=== PATIENT | female | born 1955 | race Caucasian/White ===

== ENCOUNTER 2017-05-30 05:24 | Emergency (ER) | payer OTHER, MEDICAID ==
[~2017-05-30] VITALS: Ht 160 cm; Wt 79.8 kg
[~2017-05-30 05:24] MED LIST: ABILIFY 5 MG TAB5 MG PO; ALBUTEROL2.5 MG/31 INH; ASPIRIN325 PO; CEFUROXIME250 MG PO; CELEXA 20 MG TA20 MG PO; CLARITIN10 M2 PO; GEODON20 MG PO; HYDROCODON-ACE1 EAC5 PO; JANUMET 50-5001 EACH PO; KLOR-CON 1010 MEQ PO; LASIX 20 MG TAB20 MG PO; MELOXICAM7.5 MG PO; NEXIUM40 MG PO; PREDNISONE 20 M20 M1 PO; PROTONIX40 M1 PO; SYMBICORT160 MCG/4. INH; TRAZODONE 150150 M1 PO; TRILEPTAL150 MG PO; TUSSIONEX PENN473 ML PO; VENTOLIN HFA 1818 GM INH; WELLBUTRIN SR150 MG PO
[2017-05-30] MEDS ORDERED: DUONEB 2.5-0.5 M3 ML INH (05:45)
[2017-05-30] MEDS ORDERED: CEFUROXIME250 MG PO (05:45)
[2017-05-30 06:13] VITALS: BP 149/70
== END 2017-05-30 06:24 | disposition home or self-care (01) ==
LOC: M.ERS 05:24
DX: J44.1 Chronic obstructive pulmonary disease with (acute) exacerbation (principal); J40 Bronchitis, not specified as acute or chronic; K21.9 Gastro-esophageal reflux disease without esophagitis; E11.9 Type 2 diabetes mellitus without complications; G89.29 Other chronic pain; F17.210 Nicotine dependence, cigarettes, uncomplicated; Z98.890 Other specified postprocedural states

== ENCOUNTER 2017-06-11 17:57 | Emergency (ER) | payer OTHER, MEDICAID ==
[~2017-06-11] VITALS: Ht 157.5 cm; Wt 79.8 kg
[~2017-06-11 17:57] MED LIST changes: +DUONEB 2.5-0.5 M3 ML INH
[2017-06-11] MEDS ORDERED: CENTRAVITES1 EAC1 PO (18:36)
[2017-06-11] MEDS ORDERED: DOXYCYCLINE 10100 MG PO (18:37)
[2017-06-11] MEDS ORDERED: OMEGA-31000 M1 PO (18:38)
[2017-06-11] MEDS ORDERED: JANUVIA25 MG PO (18:40)
[2017-06-11 18:42] LABS: HEMATOCRIT 39.6 % (37.0-47.0); HEMOGLOBIN 13.3 gm/dL (12.0-15.0); MCH 29.8 pg (26.0-34.0); MCHC 33.6 g/dL (28.0-37.0); MCV 88.7 fL (80.0-100.0); MPV 7.3 fl. (7.2-11.1); NUCLEATED RBCS 0 /100WBC; PLATELET COUNT* 308 thou/uL (150-400); RBC 4.46 mil/uL (4.20-5.00); RDW-CV 13.9 % (10.5-14.5); WBC 9.1 thou/uL (4.0-11.0)
[2017-06-11 19:03] LABS: ALBUMIN 2.6 g/dL (3.4-5.0); ALKALINE PHOSPHATASE 84 U/L (46-116); ANION GAP 2 mmol/L (7-16); BUN 13 mg/dL (7-18); CALCIUM 8.4 mg/dL (8.5-10.1); CHLORIDE 95 mmol/L (98-107); CO2 32 mmol/L (21-32); CREATININE 0.8 mg/dL (0.6-1.3); GLUCOSE 143 mg/dL (70-99); LIPASE 136 U/L (73-393); NT-PRO BRAIN NAT PEPTIDE 229 pg/mL (<300); POTASSIUM 4.4 mmol/L (3.5-5.1); SGOT 23 U/L (15-37); SGPT 30 U/L (30-65); SODIUM 129 mmol/L (136-145); TOTAL BILIRUBIN 0.3 mg/dL (<0.1-1.0); TOTAL PROTEIN 7.4 g/dL (6.4-8.2); TROPONIN-I LEVEL <0.06 ng/mL (<0.06)
[2017-06-11 19:11] LABS: ABSOLUTE LYMPHOCYTES 0.9 thou/uL (0.8-5.3); ABSOLUTE MONOCYTES 0.3 thou/uL (0.0-1.2); ABSOLUTE NEUTROPHILS 7.9 thou/uL (1.6-8.1)
[2017-06-11 19:12] LABS: PLATELET ESTIMATE ADEQUATE
[2017-06-11 19:19] LABS: URINE BILIRUBIN NEGATIVE (Negative); URINE BLOOD TRACE (Negative); URINE CLARITY CLEAR; URINE COLOR YELLOW; URINE GLUCOSE-RANDOM NEGATIVE (Negative); URINE KETONES NEGATIVE (Negative); URINE LEUKOCYTES-REFLEX NEGATIVE (Negative); URINE NITRITE-REFLEX NEGATIVE (Negative); URINE PROTEIN TRACE (Negative); URINE SPECIFIC GRAVITY 1.015 (1.005-1.030); URINE UROBILINOGEN 0.2 E.U./dl (0.2-1.0)
[2017-06-11 20:34] LABS: INFLUENZA A ANTIGEN None Detected (None Detect); INFLUENZA B ANTIGEN None Detected (None Detect)
[2017-06-11] MEDS ORDERED: PHENERGAN 25 MG25 M1 PO (21:12)
[2017-06-11 21:20] VITALS: BP 148/78
--- NOTE | 2017-06-12 14:41 | EKG ---
[place] [address] ELECTROCARDIOGRAM REPORT Name: ELIUD INGRAM Room: [facility]#: [id number] Admission: 06/11/17 Attend Phys: Discharge: 06/11/17 Date of : 51 Report #: [id number] THIS REPORT FOR: //name// [facility] ED Test Date: 2017-06-11 Test Time: 18:34:09 Pat Name: ELIDU INGRAM Department: Room: Gender: F [employer]: : 1955 Requested By: Kathrine Jackson Order Number: [id number] MD: Matty Madrid Measurements Intervals [place] Rate: 72 P: 57 MA: 135 QRS: 73 QRSD: 92 T: 33 QT: 375 QTc: 411 Interpretive Statements Sinus rhythm Low voltage, precordial leads Baseline wander in lead(s) I,III,aVL Compared to ECG 01/03/2017 17:42:48 Low QRS voltage now present Electronically Signed On 06-12-2017 14:41:42 [employer] by Matty Madrid [email or web address] <ELECTRONICALLY SIGNED> By: Matty Madrid MD, FACC 06/12/17 [facility]1 1834 1834 Matty Madrid MD, [facility] /EPI
== END 2017-06-11 21:23 | disposition home or self-care (01) ==
LOC: M.ERS 17:57
PROVIDERS: Nurse Practitioner Family
DX: R11.2 Nausea with vomiting, unspecified (principal); J44.9 Chronic obstructive pulmonary disease, unspecified; R10.9 Unspecified abdominal pain; K21.9 Gastro-esophageal reflux disease without esophagitis; E11.9 Type 2 diabetes mellitus without complications; G89.29 Other chronic pain; F17.210 Nicotine dependence, cigarettes, uncomplicated; Z86.79 Personal history of other diseases of the circulatory system; Z98.890 Other specified postprocedural states; Z88.8 Allergy status to other drugs, medicaments and biological substances

== ENCOUNTER 2017-07-13 05:45 | Emergency (ER) | payer OTHER, MEDICAID ==
[~2017-07-13] VITALS: Ht 157.5 cm; Wt 136.1 kg
[~2017-07-13 05:45] MED LIST changes: +CENTRAVITES1 EAC1 PO; +DOXYCYCLINE 10100 MG PO; +JANUVIA25 MG PO; +OMEGA-31000 M1 PO; +PHENERGAN 25 MG25 M1 PO
[2017-07-13 06:24] LABS: ABSOLUTE BASOPHILS 0.1 thou/uL (0.0-0.2); ABSOLUTE EOSINOPHILS 0.1 thou/uL (0.0-0.7); ABSOLUTE LYMPHOCYTES 1.8 thou/uL (0.8-5.3); ABSOLUTE NEUTROPHILS 10.4 thou/uL (1.6-8.1); BASOPHILS 0.7 %; EOSINOPHILS 0.4 %; HEMATOCRIT 40.4 % (37.0-47.0); HEMOGLOBIN 13.5 gm/dL (12.0-15.0); LYMPHOCYTES 13.6 %; MCH 29.8 pg (26.0-34.0); MCHC 33.4 g/dL (28.0-37.0); MCV 89.3 fL (80.0-100.0); MONOCYTES 7.7 %; MPV 7.6 fl. (7.2-11.1); NUCLEATED RBCS 0 /100WBC; PLATELET COUNT* 281 thou/uL (150-400); POLYS 77.6 %; RBC 4.52 mil/uL (4.20-5.00); RDW-CV 14.6 % (10.5-14.5); WBC 13.4 thou/uL (4.0-11.0)
[2017-07-13 06:31] LABS: CALCIUM 9.2 mg/dL (8.5-10.1); CREATININE 0.9 mg/dL (0.6-1.3); POTASSIUM 3.7 mmol/L (3.5-5.1)
[2017-07-13 06:35] LABS: ALBUMIN 3.4 g/dL (3.4-5.0); TOTAL BILIRUBIN 0.4 mg/dL (<0.1-1.0); TOTAL PROTEIN 8.1 g/dL (6.4-8.2)
[2017-07-13 06:39] LABS: ALCOHOL < 10 mg/dL (<10); SALICYLATE < 2.8 mg/dL (2.8-20.0)
[2017-07-13 06:40] LABS: ACETAMINOPHEN < 2 ug/mL (10-30)
[2017-07-13 07:25] LABS: URINE BILIRUBIN NEGATIVE (Negative); URINE BLOOD 2+ (Negative); URINE CLARITY CLEAR; URINE COLOR YELLOW; URINE GLUCOSE-RANDOM NEGATIVE (Negative); URINE KETONES NEGATIVE (Negative); URINE LEUKOCYTES-REFLEX NEGATIVE (Negative); URINE NITRITE-REFLEX NEGATIVE (Negative); URINE PROTEIN NEGATIVE (Negative); URINE UROBILINOGEN 0.2 E.U./dl (0.2-1.0)
[2017-07-13 07:33] LABS: AMP/METHAMP Negative (Negative); BARBITURATES Negative (Negative); BENZODIAZEPINES Negative (Negative); COCAINE Negative (Negative); METHADONE Negative (Negative); OPIATES Negative (Negative); PCP Negative (Negative); THC Negative (Negative)
[2017-07-13 07:42] LABS: BACTERIA-REFLEX 1-9 Few /HPF (None Seen); CRYSTALS None Seen /LPF (None Seen); HYALINE CASTS 4-10 Moderate /LPF (None Seen); MUCUS 0-3 Light strn/LPF (None Seen); SQUAMOUS 0-3 Few /LPF (0-3); URINE RBC 3-10 Few /HPF (0-2); URINE WBC-REFLEX None Seen /HPF (0-5)
[2017-07-13 10:29] VITALS: BP 142/97
== END 2017-07-13 11:00 | disposition home or self-care (01) ==
LOC: M.ERS 05:45
PROVIDERS: Emergency Medicine Emergency Medical Services
DX: F23 Brief psychotic disorder (principal); R41.82 Altered mental status, unspecified

== ENCOUNTER 2019-09-03 22:30 | Inpatient (IN) | payer OTHER, MEDICAID ==
[~2019-09-03] VITALS: Ht 162.6 cm; Wt 137.9 kg
[2019-09-03 22:46] VITALS: BP 134/94
[2019-09-03 23:18] LABS: ABSOLUTE BASOPHILS 0.1 thou/uL (0.0-0.2); ABSOLUTE EOSINOPHILS 0.1 thou/uL (0.0-0.7); ABSOLUTE LYMPHOCYTES 1.6 thou/uL (0.8-5.3); ABSOLUTE MONOCYTES 0.6 thou/uL (0.0-1.2); ABSOLUTE NEUTROPHILS 6.9 thou/uL (1.6-8.1); BASOPHILS 0.7 %; EOSINOPHILS 1.5 %; HEMOGLOBIN 10.8 gm/dL (12.0-15.0); MCH 25.9 pg (26.0-34.0); MCHC 31.9 g/dL (28.0-37.0); MCV 81.1 fL (80.0-100.0); MONOCYTES 6.8 %; MPV 7.8 fl. (7.2-11.1); NUCLEATED RBCS 0 /100WBC; PLATELET COUNT* 285 thou/uL (150-400); RBC 4.19 mil/uL (4.20-5.00); WBC 9.3 thou/uL (4.0-11.0)
[2019-09-03 23:38] LABS: CALCIUM 7.9 mg/dL (8.5-10.1); CREATININE 0.9 mg/dL (0.6-1.3); POTASSIUM 3.5 mmol/L (3.5-5.1)
[2019-09-03 23:49] LABS: ALBUMIN 2.9 g/dL (3.4-5.0); TOTAL BILIRUBIN 0.3 mg/dL (<0.1-1.0); TOTAL PROTEIN 7.3 g/dL (6.4-8.2)
[2019-09-04 02:40] VITALS: BP 123/60
[2019-09-04 02:55] VITALS: BP 116/50
[2019-09-04] MEDS ORDERED: NEURONTIN 300M300 M2 PO (03:23)
[2019-09-04] MEDS ORDERED: [UNRECOGNIZED DRUG - OTHER] (03:23)
[2019-09-04] MEDS ORDERED: VITAMIN D310 MC2 (03:24)
[2019-09-04 08:00] VITALS: BP 117/42
--- NOTE | 2019-09-04 10:40 | EKG ---
[place] [address] ELECTROCARDIOGRAM REPORT Name: NATALYELIUD Room: [address] ADM IN M.R.#: [id number] Admission: 09/04/19 Attend Phys: Merlyn De La Garza, Discharge: Date of : 51 Date of Service: 09/03/19 2254 Report #: [id number] THIS REPORT FOR: //name// [facility] ED Test Date: 2019-09-03 Test Time: 22:54:22 Pat Name: ELIUD INGRAM Department: Room: [facility] Gender: F Text Transcriber: MARLIN : 1955 Requested By: Jasson Ch Order Number: [id number] MD: John Martinez Measurements Intervals [place] Rate: 71 P: 56 AL: 148 QRS: 85 QRSD: 107 T: 14 QT: 429 QTc: 467 Interpretive Statements Sinus rhythm Borderline right axis deviation Low voltage, precordial leads Compared to ECG 06/11/2017 18:34:09 No significant changes Electronically Signed On 09-04-2019 10:38:29 CDT by John Martinez [email or web address] <ELECTRONICALLY SIGNED> By: John Martinez MD, FACC 09/04/19 1038 2254 2254 John Martinez MD, [facility] /EPI
[2019-09-04 12:00] VITALS: BP 98/58
[2019-09-04 20:39] VITALS: BP 121/35
[2019-09-04 23:55] VITALS: BP 116/62
[2019-09-05 04:00] VITALS: BP 136/77
[2019-09-05 06:00] LABS: HEMATOCRIT 34.7 % (37.0-47.0); HEMOGLOBIN 10.9 gm/dL (12.0-15.0); MCH 25.6 pg (26.0-34.0); MCHC 31.4 g/dL (28.0-37.0); MCV 81.6 fL (80.0-100.0); MPV 7.9 fl. (7.2-11.1); RBC 4.25 mil/uL (4.20-5.00); RDW-CV 16.4 % (10.5-14.5); WBC 8.1 thou/uL (4.0-11.0)
[2019-09-05 06:26] LABS: ALBUMIN 2.9 g/dL (3.4-5.0); ALKALINE PHOSPHATASE 69 U/L (46-116); ANION GAP < 0 mmol/L (7-16); BUN 7 mg/dL (7-18); CALCIUM 8.1 mg/dL (8.5-10.1); CHLORIDE 99 mmol/L (98-107); CO2 41 mmol/L (21-32); CREATININE 0.8 mg/dL (0.6-1.3); GLUCOSE 148 mg/dL (70-99); POTASSIUM 3.8 mmol/L (3.5-5.1); SGOT 13 U/L (15-37); SGPT 15 U/L (30-65); SODIUM 139 mmol/L (136-145); TOTAL BILIRUBIN 0.4 mg/dL (<0.1-1.0); TOTAL PROTEIN 7.1 g/dL (6.4-8.2)
[2019-09-05 08:30] VITALS: BP 139/97
[2019-09-05 12:00] VITALS: BP 130/67
[2019-09-05 16:00] VITALS: BP 104/48
--- NOTE | 2019-09-05 16:07 | 2DMMODE ---
[place] [address] 2 D/M-MODE ECHOCARDIOGRAM Name: NATALYELIUD Room: [address] IN [facility]#: [id number] Admission: 09/04/19 Attend Phys: Merlyn De La Garza, Discharge: Date of : 51 Date of Service: 09/05/19 1605 Report #: [id number] THIS REPORT FOR: cc: Pamella Moss MD, Linda MD Holkins,Ari Gaffney MD [facility] ~ APPROVED REPORT Study performed: 09/05/2019 14:23:41 EXAM: Comprehensive 2D, Doppler, and color-flow Echocardiogram Patient Location: In-Patient Room #: [facility] Status: routine BSA: 2.35 HR: 57 bpm BP: 136/77 mmHg Rhythm: NSR Other Information Study Quality: Good Indications Congestive Heart Failure ELEVATED BNP 2D Dimensions IVSd: 11.20 (7-11mm) LVOT Diam: 19.06 (18-24mm) LVDd: 42.80 mm PWd: 11.50 (7-11mm) Ascending Ao: 31.44 (22-36mm) LVDs: 28.65 (25-40mm) Aortic Root: 32.00 mm Volumes Left Atrial Volume (Systole) LA ESV Index: 34.70 mL/m2 Aortic Valve AoV Peak Marin.: 1.93 m/s AO Peak Gr.: 14.92 mmHg LVOT Max P.45 mmHg AO Mean Gr.: 8.82 mmHg LVOT Mean P.98 mmHg LVOT Max V: 1.62 m/s AO V2 VTI: 39.52 cm LVOT Mean V: 1.01 m/s WILLIAM (VTI): 2.22 cm2 LVOT V1 VTI: 30.76 [place] [address] 2 D/M-MODE ECHOCARDIOGRAM Name: ELIUD INGRAM Room: [address]#: [id number] Admission: 09/04/19 Attend Phys: Merlyn De La Garza, Discharge: Date of : 51 Date of Service: 09/05/19 1605 Report #: [id number] Mitral Valve E/A Ratio: 2.03 MV Decel. Time: 182.33 ms MV E Max Marin.: 1.27 m/s MV PHT: 52.88 ms MVA (PHT): 4.16 cm2 TDI E/Lateral E': 9.07 E/Medial E': 15.88 Medial E' Marin.: 0.08 m/s Lateral E' Marin.: 0.14 m/s Pulmonary Valve PV Peak Marin.: 1.33 m/s PV Peak Gr.: 7.10 mmHg Tricuspid Valve RAP Estimate: 15.00 mmHg TR Peak Gr.: 24.26 mmHg RVSP: 39.00 mmHg PA Pressure: 39.00 mmHg Left Ventricle The left ventricle is normal size. There is normal LV segmental wall motion. There is normal left ventricular wall thickness. Left ventricular systolic function is normal. The left ventricular ejection fraction is within the normal range. LVEF is 60%. The left ventricular diastolic function is normal. Right Ventricle Right ventricle is mild to moderately dilated. The right ventricular systolic function is normal. Atria The left atrium size is normal. Right atrium is mildly dilated. Aortic Valve The aortic valve is normal in structure. No aortic regurgitation is present. There is no aortic valvular stenosis. Mitral Valve The mitral valve is normal in structure. Trace mitral regurgitation. No evidence of mitral valve stenosis. Tricuspid Valve The tricuspid valve is normal in structure[place] [address] 2 D/M-MODE ECHOCARDIOGRAM Name: ELIUD INGRAM Room: [address]#: [id number] Admission: 09/04/19 Attend Phys: Merlyn De La Garza, Discharge: Date of : 51 Date of Service: 09/05/19 1605 Report #: [id number] regurgitation. Mild pulmonary hypertension. Pulmonic Valve The pulmonary valve is normal in structure. There is no pulmonic valvular regurgitation. Great Vessels The aortic root is normal in size. IVC is dilated and collapses <50% with inspiration. Pericardium There is no pericardial effusion. <Conclusion> The left ventricle is normal size. There is normal left ventricular wall thickness. Left ventricular systolic function is normal. The left ventricular ejection fraction is within the normal range. LVEF is 60%. The left ventricular diastolic function is normal. Right ventricle is mild to moderately dilated. The right ventricular systolic function is normal. The left atrium size is normal. Right atrium is mildly dilated. The aortic valve is normal in structure. The mitral valve is normal in structure. Trace mitral regurgitation. The tricuspid valve is normal in structure. Trace tricuspid regurgitation. Mild pulmonary hypertension. IVC is dilated and collapses <50% with inspiration. There is no pericardial effusion. There is normal LV segmental wall motion. <ELECTRONICALLY SIGNED> By: Ari Guzman MD, FACC 09/05/19 1605 1605 1605 Ari Guzman MD, FACC /INF
[2019-09-05 20:00] VITALS: BP 107/43
[2019-09-06] VITALS: BP 143/57
[2019-09-06 04:00] VITALS: BP 105/49
[2019-09-06 04:05] LABS: HEMATOCRIT 33.2 % (37.0-47.0); HEMOGLOBIN 10.4 gm/dL (12.0-15.0); MCH 25.6 pg (26.0-34.0); MCHC 31.4 g/dL (28.0-37.0); MCV 81.6 fL (80.0-100.0); MPV 7.1 fl. (7.2-11.1); RBC 4.07 mil/uL (4.20-5.00); RDW-CV 16.9 % (10.5-14.5); WBC 7.4 thou/uL (4.0-11.0)
[2019-09-06 04:48] LABS: ALBUMIN 2.7 g/dL (3.4-5.0); ALKALINE PHOSPHATASE 61 U/L (46-116); ANION GAP < 0 mmol/L (7-16); BUN 8 mg/dL (7-18); CALCIUM 8.3 mg/dL (8.5-10.1); CHLORIDE 103 mmol/L (98-107); CO2 41 mmol/L (21-32); CREATININE 0.8 mg/dL (0.6-1.3); GLUCOSE 138 mg/dL (70-99); MAGNESIUM 2.2 mg/dL (1.8-2.4); POTASSIUM 3.9 mmol/L (3.5-5.1); SGOT 9 U/L (15-37); SGPT 12 U/L (30-65); SODIUM 142 mmol/L (136-145); TOTAL BILIRUBIN 0.4 mg/dL (<0.1-1.0); TOTAL PROTEIN 6.9 g/dL (6.4-8.2)
[2019-09-06 08:00] VITALS: BP 108/74
[2019-09-06 12:11] VITALS: BP 94/53
[2019-09-06 16:00] VITALS: BP 107/63
[2019-09-06 20:00] VITALS: BP 107/57
[2019-09-07] VITALS: BP 120/67
[2019-09-07 04:00] VITALS: BP 108/58
[2019-09-07 08:15] VITALS: BP 105/55
[2019-09-07 12:10] VITALS: BP 103/61
[2019-09-07 15:55] VITALS: BP 113/58
[2019-09-07 19:40] VITALS: BP 101/68
[2019-09-08] VITALS: BP 113/60
[2019-09-08 04:00] VITALS: BP 102/55
[2019-09-08 05:38] LABS: HEMATOCRIT 35.1 % (37.0-47.0); HEMOGLOBIN 10.9 gm/dL (12.0-15.0); MCH 25.4 pg (26.0-34.0); RBC 4.28 mil/uL (4.20-5.00); RDW-CV 16.8 % (10.5-14.5); WBC 8.1 thou/uL (4.0-11.0)
[2019-09-08 05:46] LABS: ALBUMIN 2.8 g/dL (3.4-5.0); CALCIUM 8.8 mg/dL (8.5-10.1); CREATININE 0.7 mg/dL (0.6-1.3); MAGNESIUM 2.1 mg/dL (1.8-2.4); TOTAL BILIRUBIN 0.2 mg/dL (<0.1-1.0)
[2019-09-08 08:00] VITALS: BP 168/87
[2019-09-08 12:09] VITALS: BP 115/49
[2019-09-08 16:52] VITALS: BP 104/51
[2019-09-08 19:50] VITALS: BP 95/55
[2019-09-09 00:35] VITALS: BP 97/48
[2019-09-09 04:24] VITALS: BP 124/47
[2019-09-09 08:00] VITALS: BP 108/44
[2019-09-09] MEDS ORDERED: GLUCOPHAGE500 MG PO (11:10)
[2019-09-09] MEDS ORDERED: DOXYCYCLINE 10100 MG PO (11:10)
[2019-09-09] MEDS ORDERED: LASIX 40 MG TAB40 M1 PO (11:10)
[2019-09-09] MEDS ORDERED: PREDNISONE 10 M10 MG PO (11:10)
== END 2019-09-09 14:10 | disposition home or self-care (01) | DRG 177 ==
LOC: M.ERS 22:30 → M.ORTHSURG 09-04 00:50 → M.TBA-ER 09-04 00:50 → M.ORTHSURG 09-04 02:31 → M.2W 09-05 20:16
PROVIDERS: Emergency Medicine Emergency Medical Services; ADMIT Internal Medicine
DX: J15.6 Pneumonia due to other Gram-negative bacteria (principal); J96.01 Acute respiratory failure with hypoxia; I50.33 Acute on chronic diastolic (congestive) heart failure; L03.116 Cellulitis of left lower limb; L03.115 Cellulitis of right lower limb; J44.0 Chronic obstructive pulmonary disease with (acute) lower respiratory infection; J44.1 Chronic obstructive pulmonary disease with (acute) exacerbation; E11.9 Type 2 diabetes mellitus without complications; F17.210 Nicotine dependence, cigarettes, uncomplicated; I87.8 Other specified disorders of veins; F31.9 Bipolar disorder, unspecified; E78.41 Elevated Lipoprotein(a); Z20.828 Contact with and (suspected) exposure to other viral communicable diseases; Z88.8 Allergy status to other drugs, medicaments and biological substances; Z79.891 Long term (current) use of opiate analgesic; Z90.2 Acquired absence of lung [part of]; Z79.899 Other long term (current) drug therapy; Z85.118 Personal history of other malignant neoplasm of bronchus and lung

== ENCOUNTER 2020-05-06 11:42 | Emergency (ER) | payer OTHER, MEDICAID ==
[~2020-05-06] VITALS: Ht 162.6 cm; Wt 136.1 kg
[~2020-05-06 11:42] MED LIST changes: +GLUCOPHAGE500 MG PO; +LASIX 40 MG TAB40 M1 PO; +NEURONTIN 300M300 M2 PO; +PREDNISONE 10 M10 MG PO; +VITAMIN D310 MC2; +[UNRECOGNIZED DRUG - OTHER]
[2020-05-06] MEDS ORDERED: JANTOVEN7.5 MG PO (11:51)
[2020-05-06] MEDS ORDERED: DEPAKOTE250 MG PO (11:52)
[2020-05-06 12:02] LABS: URINE BILIRUBIN NEGATIVE (Negative); URINE BLOOD 1+ (Negative); URINE CLARITY CLEAR; URINE COLOR YELLOW; URINE GLUCOSE-RANDOM NEGATIVE (Negative); URINE KETONES NEGATIVE (Negative); URINE LEUKOCYTES-REFLEX NEGATIVE (Negative); URINE NITRITE-REFLEX NEGATIVE (Negative); URINE PROTEIN NEGATIVE (Negative); URINE UROBILINOGEN 0.2 E.U./dl (0.2-1.0)
[2020-05-06 12:06] LABS: SQUAMOUS 4-10 Moderate /LPF (0-3); URINE RBC 3-10 Few /HPF (0-2); URINE WBC-REFLEX 0-5 Rare /HPF (0-5)
[2020-05-06 12:07] LABS: CASTS None Seen /LPF (None Seen); CRYSTALS None Seen /LPF (None Seen); MUCUS 0-3 Light strn/LPF (None Seen)
[2020-05-06 12:26] LABS: ABSOLUTE BASOPHILS 0.1 thou/uL (0.0-0.2); ABSOLUTE LYMPHOCYTES 1.1 thou/uL (0.8-5.3); ABSOLUTE MONOCYTES 0.8 thou/uL (0.0-1.2); ABSOLUTE NEUTROPHILS 5.4 thou/uL (1.6-8.1); BASOPHILS 0.9 %; EOSINOPHILS 0.6 %; HEMATOCRIT 32.4 % (37.0-47.0); HEMOGLOBIN 10.1 gm/dL (12.0-15.0); LYMPHOCYTES 14.4 %; MCH 26.5 pg (26.0-34.0); MCHC 31.2 g/dL (28.0-37.0); MCV 84.9 fL (80.0-100.0); MONOCYTES 10.5 %; MPV 7.2 fl. (7.2-11.1); NUCLEATED RBCS 0 /100WBC; PLATELET COUNT* 182 thou/uL (150-400); POLYS 73.6 %; RBC 3.81 mil/uL (4.20-5.00); RDW-CV 17.2 % (10.5-14.5); WBC 7.3 thou/uL (4.0-11.0)
[2020-05-06 12:34] LABS: BUN 12 mg/dL (7-18); CALCIUM 8.4 mg/dL (8.5-10.1); CHLORIDE 96 mmol/L (98-107); CREATININE 0.8 mg/dL (0.6-1.3); GLUCOSE 213 mg/dL (70-99); POTASSIUM 4.1 mmol/L (3.5-5.1); SODIUM 138 mmol/L (136-145)
[2020-05-06 12:37] LABS: INR 2.8; PROTIME 28.2 Seconds (9.20-11.50)
[2020-05-06 12:39] LABS: ALKALINE PHOSPHATASE 61 U/L (46-116); CO2 > 45 mmol/L (21-32); SGOT 10 U/L (15-37); SGPT 21 U/L (30-65); TOTAL BILIRUBIN 0.3 mg/dL (<0.1-1.0); TOTAL PROTEIN 7.4 g/dL (6.4-8.2)
[2020-05-06 15:00] VITALS: BP 108/50
== END 2020-05-06 15:00 | disposition home or self-care (01) ==
LOC: M.ERS 11:42
PROVIDERS: Family Medicine
DX: S00.83XA Contusion of other part of head, initial encounter (principal); J44.9 Chronic obstructive pulmonary disease, unspecified; E11.9 Type 2 diabetes mellitus without complications; F17.210 Nicotine dependence, cigarettes, uncomplicated; Z96.652 Presence of left artificial knee joint; Z88.8 Allergy status to other drugs, medicaments and biological substances; Z85.118 Personal history of other malignant neoplasm of bronchus and lung; W18.39XA Other fall on same level, initial encounter; Y93.89 Activity, other specified; Y92.89 Other specified places as the place of occurrence of the external cause; Y99.8 Other external cause status